=== PATIENT | female | born 1945 | race Caucasian/White ===

== ENCOUNTER 2016-08-13 23:35 | Emergency (ER) | payer MEDICARE ==
[~2016-08-13] VITALS: Ht 157.5 cm; Wt 54.0 kg
[2016-08-14 00:50] LABS: APPEARANCE,URINE CLEAR; BASOPHILS % (AUTO) 0.7 % (0.0-2.0); EOSINOPHILS % (AUTO) 0.7 % (0.0-3.0); KETONES,URINE 1+ (NEGATIVE); LEUKOCYTE ESTERASE ,URINE 2+ (NEGATIVE); LYMPHOCYTES % (AUTO) 29.8 % (20.0-45.0); MEAN CORPUSCULAR HEMOGLOBIN 31.9 PG (27.0-31.0); MEAN CORPUSCULAR HGB CONC 35.1 G/DL (32.0-36.0); MEAN CORPUSCULAR VOLUME 91 FL (80-99); MEAN PLATELET VOLUME 6.6 FL (6.5-10.1); MONOCYTES % (AUTO) 6.9 % (1.0-10.0); NITRITE,URINE NEGATIVE (NEGATIVE); PH,URINE 8 (4.5-8.0); PLATELET COUNT 221 K/UL (150-450); PROTEIN,URINE NEGATIVE (NEGATIVE); RED BLOOD COUNT 4.41 M/UL (4.20-5.40); UROBILINOGEN,URINE NORMAL MG/DL (0.0-1.0); WHITE BLOOD COUNT 7.3 K/UL (4.8-10.8)
[2016-08-14 01:02] LABS: ALANINE AMINOTRANSFERASE 15 U/L (3-33); ALBUMIN/GLOBULIN RATIO 1.7 (1.0-2.7); ANION GAP 12 (5-15); ASPARTATE AMINO TRANSFERASE 19 U/L (5-40); CALCIUM 9.6 mg/dL (8.6-10.2); CARBON DIOXIDE 28 mEQ/L (20-30); CHLORIDE 98 mEQ/L (98-107); CREATININE 0.8 mg/dL (0.5-0.9); GLOMERULAR FILTRATION RATE > 60 mL/min (>60); HEMOLYSIS 6; LIPASE 20 U/L (< 60); POTASSIUM 4.1 mEQ/L (3.4-4.9); SODIUM 138 mEQ/L (135-145); TOTAL PROTEIN 6.4 g/dL (6.6-8.7)
[2016-08-14 01:08] LABS: BACTERIA,URINE MODERATE /HPF; SQUAMOUS EPITHELIAL CELL,UR FEW /LPF (NONE/OCC); WBC,URINE 60-80 /HPF (0 - 2)
--- NOTE | 2016-08-14 01:38 | Emergency Room Report ---
History of Present Illness General Chief Complaint: Abdominal Pain Source: Patient Present Illness HPI Patient present with complaints of epigastric discomfort Denies any vomiting or diarrhea she some very minimal nausea earlier Denies any dysuria frequency Denies any back or flank pain Patient's pain is 3/10 Patient feels that there is a lump in that area Denies any other fall or trauma Patient has had routine colonoscopies but no other intervention Allergies: Coded Allergies: METRONIDAZOLE (Verified Allergy, Unknown, 08/13/16) Patient History Past Medical History: see triage record Pertinent Family History: none Last Menstrual Period: Menopause Now: No Reviewed Nursing Documentation: PMH: Agreed, PSxH: Agreed Nursing Documentation-PMH Past Medical History: No History, Except For Review of Systems All Other Systems: negative except mentioned in HPI Physical Exam Vital Signs Date Time Temp Pulse Resp B/P Pulse Ox O2 Delivery O2 Flow Rate FiO2 08/13/16 23:40 97.9 91 16 155/98 100 Room Air Sp02 EP Interpretation: reviewed, normal General Appearance: well appearing, no apparent distress Head: normocephalic, atraumatic Eyes: bilateral eye EOMI, bilateral eye PERRL ENT: hearing grossly normal, normal pharynx, TMs + canals normal, uvula midline Neck: full range of motion, supple, no meningismus, no bony tend Respiratory: lungs clear, normal breath sounds, no rhonchi, no respiratory distress, no retraction, no accessory muscle use Cardiovascular #1: normal peripheral pulses, regular rate, rhythm, no edema, no gallop, no JVD, no murmur Gastrointestinal: normal bowel sounds, non tender, soft, no mass, no organomegaly, non-distended, no guarding, no hernia, no pulsatile mass, no rebound Genitourinary: no CVA tenderness Musculoskeletal: normal inspection Neurologic: oriented x3, responsive, bag maker III-XII nml as tested, motor strength/ tone normal, sensory intact Psychiatric: mood/affect normal Skin: normal color, no rash, warm/dry, palpation normal Lymphatic: normal inspection, no adenopathy Medical Decision Making Diagnostic Impression: Primary Impression: Abdominal pain ER Course With the history exam and presentation, multiple differentials considered, including but not limited to appendicitis, gastritis, cholecystitis, diverticulitis Patient continues to do significantly better At this time a reevaluation pain-free and feels at baseline levels Patient's blood work is appropriate urine sample did show bacteria However there is also evidence of possible contamination In discussion with the patient she does not have any urinary symptoms 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 Given the lack of any symptoms we will be pending further culturing of the urine the patient was otherwise discharged on Zofran and close outpatient follow Labs Test 08/14/16 00:32 White Blood Count 7.3 K/UL (4.8-10.8) Red Blood Count 4.41 M/UL (4.20-5.40) Hemoglobin 14.1 G/DL (12.0-16.0) Hematocrit 40.1 % (37.0-47.0) Mean Corpuscular Volume 91 FL (80-99) Mean Corpuscular Hemoglobin 31.9 PG (27.0-31.0) Mean Corpuscular Hemoglobin Concent 35.1 G/DL (32.0-36.0) Red Cell Distribution Width 11.0 % (11.6-14.8) Platelet Count 221 K/UL (150-450) Mean Platelet Volume 6.6 FL (6.5-10.1) Neutrophils (%) (Auto) 62.0 % (45.0-75.0) Lymphocytes (%) (Auto) 29.8 % (20.0-45.0) Monocytes (%) (Auto) 6.9 % (1.0-10.0) Eosinophils (%) (Auto) 0.7 % (0.0-3.0) Basophils (%) (Auto) 0.7 % (0.0-2.0) Urine Color Pale yellow Urine Appearance Clear Urine pH 8 (4.5-8.0) Urine Specific [place] 1.010 (1.005-1.035) Urine Protein Negative (NEGATIVE) Urine Glucose (UA) Negative (NEGATIVE) Urine Ketones 1+ (NEGATIVE) Urine Occult Blood 1+ (NEGATIVE) Urine Nitrite Negative (NEGATIVE) Urine Bilirubin Negative (NEGATIVE) Urine Urobilinogen Normal MG/DL (0.0-1.0) Urine Leukocyte Esterase 2+ (NEGATIVE) Urine RBC 2-4 /HPF (0 - 2) Urine WBC 60-80 /HPF (0 - 2) Urine Squamous Epithelial Cells Few /LPF (NONE/OCC) Urine Bacteria Moderate /HPF (NONE) Sodium Level 138 mEQ/L (135-145) Potassium Level 4.1 mEQ/L (3.4-4.9) Chloride Level 98 mEQ/L (98-107) Carbon Dioxide Level 28 mEQ/L (20-30) Anion Gap 12 (5-15) Blood Urea Nitrogen 12 mg/dL (7-23) Creatinine 0.8 mg/dL (0.5-0.9) Estimat Glomerular Filtration Rate > 60 mL/min (>60) Glucose Level 126 mg/dL (74-106) Calcium Level 9.6 mg/dL (8.6-10.2) Total Bilirubin 0.4 mg/dL (0.0-1.2) Aspartate Amino Transf (AST/SGOT) 19 U/L (5-40) Alanine Aminotransferase (ALT/SGPT) 15 U/L (3-33) Alkaline Phosphatase 70 U/L (35-104) Total Protein 6.4 g/dL (6.6-8.7) Albumin 4.1 g/dL (3.5-5.2) Globulin 2.3 g/dL Albumin/Globulin Ratio 1.7 (1.0-2.7) Lipase 20 U/L (< 60) Last Vital Signs Date Time Temp Pulse Resp B/P Pulse Ox O2 Delivery O2 Flow Rate FiO2 08/13/16 23:40 97.9 91 16 155/98 100 Room Air Status: improved Disposition: HOME, SELF-CARE Condition: Improved Scripts Ondansetron Odt* (ZOFRAN ODT*) 4 Mg Tab.rapdis 4 MG ORAL Q6H Y for Nausea & Vomiting, #12 TAB 0 Refills Prov: KUSHAL CHANCE D.O. 08/14/16 Additional Instructions: Patient is provided with the discharge instructions notified to follow up with primary doctor in the next 2-3 days otherwise return to the er with any worsening symptoms. Please note that this report is being documented using DRAGON technology. This can lead to erroneous entry secondary to incorrect interpretation by the dictating instrument. KUSHAL CHANCE D.O. August 14, 2016 01:38
[2016-08-14] MEDS ORDERED: ZOFRAN ODT4 MG ORAL (01:55)
[2016-08-14] MEDS ORDERED: Famotidine 20 MG/ 2ML VIAL IVP ONE (02:00)
[2016-08-14 02:14] VITALS: BP 137/76
[2016-08-14 02:15] VITALS: BP 155/98
== END 2016-08-14 02:15 | disposition home or self-care (01) ==
LOC: EMR 08-14 01:53
DX: R10.9 Unspecified abdominal pain (principal)
CPT/HCPCS: 36415; 80053; 81003; 83690; 85025; 87086; 87181; 96374; 96375; 99284; J2405; S0028

== ENCOUNTER 2020-03-16 21:59 | Emergency (ER) | payer MEDICARE ==
[~2020-03-16] VITALS: Ht 157.5 cm; Wt 53.5 kg
[~2020-03-16 21:59] MED LIST: ZOFRAN ODT4 MG ORAL
[2020-03-16 22:05] VITALS: BP 138/89
[2020-03-16] MEDS ORDERED: DiphenhydrAMINE 50mg/ml Inj IM ONE (22:45)
--- NOTE | 2020-03-16 22:52 | Emergency Room Report ---
History of Present Illness General Chief Complaint: Upper Extremity Injury Source: Patient Present Illness HPI Patient is a 74-year-old female presents for increased left upper extremity discomfort. Had recent injection to her left upper extremity. Had noticed increased welling and itching yesterday to that area. Had Pneumovax vaccine placed. Prior history of hypothyroidism. Denies any fever. Denies any shortness of breath. Had recently had injection placed this morning. Patient denies any facial swelling or difficulty with respirations. Allergies: Coded Allergies: METRONIDAZOLE (Verified Allergy, Mild, 03/16/20) COVID-19 Screening Contact w/high risk pt: No Experienced COVID-19 symptoms?: No COVID-19 Testing performed IT AUDITOR: No Patient History Past Medical History: see triage record Now: No : 0 Para: 0 Reviewed Nursing Documentation: PMH: Agreed; PSxH: Agreed Nursing Documentation-PMH Past Medical History: No History, Except For Review of Systems All Other Systems: negative except mentioned in HPI Physical Exam Vital Signs Date Time Temp Pulse Resp B/P (MAP) Pulse Ox O2 Delivery O2 Flow Rate FiO2 03/16/20 21:59 97.7 86 18 138/89 (105) 96 Room Air General Appearance: well appearing, no apparent distress, alert, GCS 15 Head: normocephalic, atraumatic ENT: hearing grossly normal, normal voice Neck: full range of motion, supple Respiratory: no respiratory distress, no accessory muscle use, speaking full sentences Cardiovascular #1: normal inspection Gastrointestinal: normal inspection Musculoskeletal: no calf tenderness, other - Upper extremity patchy swelling to the upper extremity. Neurologic: alert, motor strength/tone normal, elevator conductor III-XII nml as tested, oriented x3, normal gait Psychiatric: normal inspection, mood/affect normal Skin: other - Swelling to the left upper extremity over the biceps. No erythema, Medical Decision Making Diagnostic Impression: Primary Impression: Allergic reaction ER Course Present for left upper extremity swelling. Differential diagnosis include was not limited to allergic reaction, contact dermatitis, arthus reaction among others. Patient has a benign exam and does not appear to require any imaging or laboratory testing at this time. Patient given Benadryl with improvement in the allergic reaction. Patient was given medications prescription. She is advised to follow-up with her primary care physician for recheck. Wound was marked with skin marker. This medical record is generated with Dragon filer helper software. There may be some filer helper discrepancies related to use of this software Last Vital Signs Date Time Temp Pulse Resp B/P (MAP) Pulse Ox O2 Delivery O2 Flow Rate FiO2 03/16/20 21:59 97.7 86 18 138/89 (105) 96 Room Air Status: improved Disposition: HOME, SELF-CARE Condition: Stable Scripts Prednisone* (PREDNISONE*) 20 Mg Tablet 40 MG ORAL DAILY, #10 TAB Prov: Marcus Quintana MD 03/16/20 Diphenhydramine Hcl (BENADRYL ALLERGY) 25 Mg Tablet 25 MG PO EVERY 6 HOURS, #30 TAB Prov: Marcus Quintana MD 03/16/20 Referrals: NON PHYSICIAN (PCP) Marcus Quintana MD Mar 16, 2020 22:52
[2020-03-16] MEDS ORDERED: BENADRYL ALLERG25 M1 PO (23:02)
[2020-03-16] MEDS ORDERED: PREDNISONE20 MG ORAL (23:02)
[2020-03-16 23:15] VITALS: BP 125/73
== END 2020-03-16 23:15 | disposition home or self-care (01) ==
LOC: EMR 22:38
DX: T78.40XA Allergy, unspecified, initial encounter (principal); X58.XXXA Exposure to other specified factors, initial encounter; M79.89 Other specified soft tissue disorders; Z88.1 Allergy status to other antibiotic agents
CPT/HCPCS: 96372; 99283; J1200